=== PATIENT | female | born 1945 ===

== ENCOUNTER 2018-04-20 17:15 | Emergency (ER) | payer BC ==
[2018-04-20 17:23] VITALS: RESP 18; TEMP 98.3
[2018-04-20] MEDS ORDERED: Tdap Vaccine 0.5 ml Vial (10-64 yrs) IM ONE ×2 (17:32→17:47)
--- NOTE | 2018-04-20 18:16 | C.PDOC ---
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 Patient states she was walking with her grandchild when she accidentally tripped, fell and hit her head. She is c/o a laceration to her left eyebrow. Patient denies loss of conscious, vision change, nausea, vomiting, extremity numbness/weakness. - HPI Time Seen by Provider: 04/20/18 17:24 Chief Complaint (Nursing): Trauma History Per: Patient History/Exam Limitations: no limitations Onset/Duration Of Symptoms: Hrs Additional History Per: Patient Past Medical History Reviewed: Historical Data, Nursing Documentation, Vital Signs Vital Signs: Last Vital Signs Temp 98.3 F 04/20/18 17:20 Pulse 85 04/20/18 18:49 Resp 18 04/20/18 18:49 BP 198/93 H 04/20/18 18:49 Pulse Ox 96 04/20/18 18:52 - Medical History PMH: No Chronic Diseases Comment Only: HTN (DENIED) Surgical History: No Surg Hx Family History: States: Unknown Family Hx - Social History Hx Alcohol Use: No Hx Substance Use: No - Immunization History Hx Tetanus Toxoid Vaccination: No Hx Influenza Vaccination: No Hx Pneumococcal Vaccination: No Review Of Systems Eyes: Negative for: Vision Change Gastrointestinal: Negative for: Nausea, Vomiting Skin: Positive for: Other (laeration s/p head injury ) Neurological: Negative for: Weakness, Numbness, Other (LOC) Physical Exam - Physical Exam Appears: Non-toxic, No Acute Distress Skin: Normal Color, Warm, Dry Head: Laceration (2cm, over left eyebrow. no active bleeding ) Eye(s): bilateral: Normal Inspection, PERRL, EOMI Oral Mucosa: Moist Neck: Normal ROM, Supple Chest: Symmetrical, No Deformity, No Tenderness Cardiovascular: Rhythm Regular, No Murmur Respiratory: Normal Breath Sounds, No Rales, No Rhonchi, No Wheezing Extremity: Normal ROM, No Tenderness, Capillary Refill (less than 2 seconds ), No Deformity, No Swelling Neurological/Psych: Oriented x3, Normal Speech, Normal Cognition Gait: Steady ED Course And Treatment O2 Sat by Pulse Oximetry: 96 (on RA) Pulse Ox Interpretation: Normal - CT Scan/US No standard instances Other Rad Studies (CT/US): Read By Radiologist, Radiology Report Reviewed CT/US Interpretation: IMPRESSION: No acute intracranial hemorrhage. Mild chronic periventricular white matter ischemic change with and suspected few scattered subcortical white matter ischemic changes. Moderate generalized volume loss. Left periorbital and left frontotemporal scalp swelling with associated scalp laceration and small amount of subcutaneous emphysema. Moderate generalized volume loss. Progress Note: CT Head ordered and reviewed. Tetanus IM administered. Wound cleaned and closed with multiple sutures. Discharge in stable condition, neuro intact Reassessment Condition: Improved Laceration - Laceration Repair left eyebrow Wound Length (In cm): 2 Description Of Wound: Linear Wound Examination: Irrigated With Saline, No FB With Wound Exploration, No Tendon Injury With Wound Exploration Wound Closure: Suture (multiple) Suture Technique And Material Used: Nylon (5-0) Disposition Counseled Patient/Family Regarding: Studies Performed, Diagnosis, Need For Followup - Disposition [facility] Disposition: HOME/ ROUTINE Disposition Time: 19:00 Condition: IMPROVED Additional Instructions: Suture removal in 7 days Ice to affected area Instructions: Laceration Repair, Preventing Falls, Minor Head Injury Forms: [employer] ([place]) Print Language: UKRAINIAN - POA Present On Arrival: None - Clinical Impression Clinical Impression: Laceration - injury, Head injury - PA / CREDIT ANALYST / Resident Statement MD/DO has reviewed & agrees with the documentation as recorded. - Scribe Statement The provider has reviewed the documentation as recorded by the Scribe (Marva Gage) All medical record entries made by the Scribe were at my direction and personally dictated by me. I have reviewed the chart and agree that the record accurately reflects my personal performance of the history, physical exam, medical decision making, and the department course for this patient. I have also personally directed, reviewed, and agree with the discharge instructions and disposition.
--- NOTE | 2018-04-20 18:21 | CT ---
PROCEDURE: CT HEAD WITHOUT CONTRAST. HISTORY: R/O Bleed COMPARISON: None available. TECHNIQUE: Axial computed tomography images were obtained through the head/brain without intravenous contrast. Radiation dose: Total exam DLP = 790.88 mGy-cm. This CT exam was performed using one or more of the following dose reduction techniques: Automated exposure control, adjustment of the mA and/or kV according to patient size, and/or use of iterative reconstruction technique. FINDINGS: HEMORRHAGE: No acute parenchymal, subarachnoid or extra-axial hemorrhage. BRAIN: Mild chronic periventricular and scattered subcortical white matter ischemic changes are felt to be present. Vascular calcifications both carotid siphons VENTRICLES: No obstructive hydrocephalus. CALVARIUM: There are no acute calvarial fracture seen. Left periorbital soft tissue swelling is seen extending superiorly into the supraorbital and frontal scalp. There is a laceration along the left frontotemporal scalp associate with few small bubbles of subcutaneous air. The periorbital supraorbital and left lateral PARANASAL SINUSES: Unremarkable as visualized. No significant inflammatory changes. MASTOID AIR CELLS: Unremarkable as visualized. No inflammatory changes. OTHER FINDINGS: None. IMPRESSION: No acute intracranial hemorrhage. Mild chronic periventricular white matter ischemic change with and suspected few scattered subcortical white matter ischemic changes. Moderate generalized volume loss. Left periorbital and left frontotemporal scalp swelling with associated scalp laceration and small amount of subcutaneous emphysema. Moderate generalized volume loss.
[2018-04-20] MEDS ORDERED: Bacitracin 500 Units/gm Oint Foilpak UD ONE (18:46)
[2018-04-20 18:51] VITALS: BP 198/93; PULSE 85
[2018-04-20 18:52] VITALS: O2SAT 96
== END 2018-04-20 18:52 | disposition home or self-care (01) ==
LOC: C.ER 17:15
DX: S01.112A Laceration without foreign body of left eyelid and periocular area, initial encounter (principal); W01.0XXA Fall on same level from slipping, tripping and stumbling without subsequent striking against object, initial encounter; Y93.01 Activity, walking, marching and hiking